=== PATIENT | female | born 1990 | race African-American/Black ===

== ENCOUNTER 2016-11-10 15:37 | Inpatient (IN) | payer OTHER ==
--- NOTE | ~2016-11-10 | EE ---
Unit #: [id number] #: [id number] Patient: MARGARETH CLARKE [id number] [address] [id number] I MR#: [id number] NAME: MARGARETH CLARKE : 1990 SEX: F STUDY DATE/TIME: UNIT: C3A PCU ROOM: [address] [place] [address] DESCRIPTION: EEG Attending Physician: Fredrick Rocha M.D. NEURODIAGNOSTICS REPORT EXAM EEG CHIEF COMPLAINT Seizures. DESCRIPTION EEG was obtained in the awake and asleep states using the 10-20 International Montage System with photic stimulation and hyperventilation. EEG showed well organized 10 Hz range background activity from posterior regions which was symmetric between the hemispheres. There were no epileptiform discharges present and there were no focal signs. Response to photic stimulation and hyperventilation was minimal. Normal stage 2 sleep was captured during the recording. IMPRESSION Normal EEG in awake and asleep states. Dictated by... Mandeep Byrnes/yong TD: 11/12/2016 07:22 JOB #: [id number] NEURODIAGNOSTICS REPORT Page 1 of 1 X Kavon Rojas MD NEURODIAGNOSTICS REPORT
--- NOTE | ~2016-11-10 | EKG ---
PATIENT: BARRY CAMPUZANO UNIT #: [id number] Ventricular Rate: 60 BPM Atrial Rate: 60 BPM P-R Interval: 172 ms QRS Duration: 72 ms Q-T Interval: 400 ms QTC Calculation(Bezet): 400 ms P [place]: 55 degrees Calculated R [place]: 80 degrees Calculated T [place]: 51 degrees Diagnosis Line: Normal sinus rhythm Diagnosis Line: T wave abnormality, consider anterior ischemia Diagnosis Line: Abnormal ECG Diagnosis Line: Diagnosis Line: Confirmed by SUKUMAR JACKSON MD ([id number]) on 11/13/2016 Diagnosis Line: 9:41:34 AM INTERPRETING MD: MANUEL HUGHES
--- NOTE | ~2016-11-10 | HP ---
Unit #: [id number] #: [id number] Patient: BARRY CLARKE [id number] [facility]. [place], [place] [address] [id number] MR#: [id number] NAME: BARRY CAMPUZANO ROOM: Age: 26 Sex: F Admission Date: 11/10/2016 : 1990 Attending Physician: Akin Vicente M.D. HISTORY AND PHYSICAL CHIEF COMPLAINT Seizure. HISTORY OF PRESENT ILLNESS The patient is a 26-year-old female with a past medical history of seizure disorder who presented to the emergency department for evaluation of the above. The history is obtained from chart review and discussion with ER staff due to the patient currently being postictal and not answering any questions. The patient apparently had a seizure on the evening prior to admission. Today, she had another seizure. She is reportedly on 1000 mg of Keppra daily. She took half her usual dose today. She presented to the emergency department for further evaluation. In the emergency department, a CT of the head was done and showed nothing acute. Laboratory was essentially normal. She was going to be discharged home but then appeared to be confused and postictal. There was no witnessed seizure activity. She was given one gram of Keppra. She is being admitted to [facility] for evaluation and further treatment. PAST MEDICAL HISTORY Seizure disorder, maintained on Keppra. I was unable to get any additional details due to the patient currently being postictal. PAST SURGICAL HISTORY None. SOCIAL HISTORY The patient smokes a half pack of cigarettes daily. FAMILY HISTORY Unobtainable. REVIEW OF SYSTEMS A complete review of systems is unobtainable due to the patient currently being confused. PHYSICAL EXAMINATION VITAL SIGNS: Temperature is 98.3, pulse 72, respirations 22, blood pressure 147/92 and most recently 119/59, and oxygen saturation is 100% on room air. GENERAL: Patient is an female who is lethargic but opens Unit #: [id number] #: [id number] Patient: BARRY CLARKE eyes to physical stimuli. HEENT: Head is atraumatic. Mucous membranes are moist. NECK: Supple. Trachea is midline. CARDIOVASCULAR: Regular rate and rhythm. LUNGS: Clear to auscultation bilaterally with no increased work of breathing. ABDOMEN: Soft and nontender with bowel sounds present in all four quadrants. EXTREMITIES: Nontender with no pedal edema. NEUROLOGIC: Patient is lethargic. She opens eyes to physical stimuli. She is moving all extremities. PSYCHIATRIC: Unable to assess. SKIN: Skin of examined areas is warm and dry. DIAGNOSTIC STUDIES LABORATORY: Blood alcohol level is less than 5. Urine test is negative. Complete blood count is normal. Urine toxicology screen is positive for marijuana. Comprehensive metabolic panel notable for bicarb of 17. Anion gap is 12. IMAGING: Chest x-ray shows nothing acute. CT of the head shows nothing acute. CARDIOLOGY: EKG showed normal sinus rhythm with a rate of 60 beats per minute. There is T wave inversion in leads V2-V4. ASSESSMENT The patient is a 26-year-old female with: 1. Multiple seizures. The patient was given one gram of Keppra in the emergency department. 2. History of seizures, on 1000 mg of Keppra daily, although she recently took half of her normal dose. 3. Tobacco abuse. PLAN 1. Admit for observation to intermediate level. 2. N.p.o. until awake and passes bedside swallow. 3. Normal saline at 125 mL/hour. 4. Check magnesium level. 5. Bedrest. 6. Seizure precautions. 7. Neuro checks. 8. Keppra 1000 mg IV q.[address] Velazquez regarding multiple seizures. 10. Cardiac enzymes. 11. Repeat EKG in a.m. 12. Repeat labs in the morning. 13. SCDs for DVT prophylaxis. 14. Additional workup and consultants based on above. 1. Dictated by Priscilla Ceballos M.D. AW/dara TD: 11/10/2016 19:00 JOB #: [id number] Unit #: [id number] #: [id number] Patient: BARRY CLARKE HISTORY AND PHYSICAL Page 1 of 1 X Priscilla Ceballos MD HISTORY AND PHYSICAL
--- NOTE | ~2016-11-10 | CR72 ---
[facility] A Service of [facility] RADIOLOGY TEXT RESULTS PATIENT: MARGARETH CLARKE LOCATION: [facility] 303- : [birth year] UNIT #: [id number] AGE: [address]: Fredrick Rocha MD SEX: F ORDER DR: [id number] [facility] [address] [facility]. [place], [place] [address] [id number] I MR#: [id number] #: [id number] NAME: BARRY CLARKE : 1990 SEX: F STUDY DATE/TIME: 11/10/2016 16:28 UNIT: [address] ROOM: [facility] STUDY DESCRIPTION: CR Chest Single View Portable Attending Physician: Priscilla Ceballos M.D. Ordering Physician: Akin Vicente M.D. MEDICAL IMAGING REPORT This report is preliminary unless electronic signature is present EXAM Portable chest INDICATIONS Chest congestion today. PROCEDURE Frontal view of the chest COMPARISON None FINDINGS Heart size within normal limits. No dense consolidation, effusion or visible pneumothorax. IMPRESSION No acute findings. Dictated by... Tavo Chavez M.D. THIS IS AN ELECTRONICALLY VERIFIED REPORT Tavo Chavez M.D. at 11/14/2016 7:05 AM Carlos TD: 11/11/2016 06:33 JOB #: [id number] MEDICAL IMAGING REPORT Page 1 of 1 COPY
--- NOTE | ~2016-11-10 | CO ---
Unit #: [id number] #: [id number] Patient: MARGARETH DODSON [id number] [address] [place], [place] [address] [id number] I MR#: [id number] NAME: MARGARETH DODSON ROOM: 303 Age: 26 Sex: F Admission Date: 11/10/2016 : 1990 Attending Physician: Fredrick Rocha M.D. Consultation Date: 11/11/2016 CONSULTATION REPORT REASON FOR CONSULTATION Elevated troponin. HISTORY OF PRESENT ILLNESS This is a 26-year-old female who was diagnosed with seizures last year, has been on Keppra, who came in to the emergency room on this admission with recurrent seizures, breakthrough seizures. According to the patient, she says she had a seizure the evening prior to admission. She said a lot of times she has no aura, just kind of comes on suddenly. She said she usually falls with the seizures. She does not think she sustained any significant injury. She just felt sore. She had another seizure on day of admission. She reportedly is on 1,000 mg of Keppra daily. She took half of her usual dose on day of admission. Patient denies any chest pain, pain in her neck, bilateral jaws, shoulders, arms or elbows. She denies any palpitations. She does not have any aura before her seizures, as mentioned. She denied any dizziness. She is usually postictal. She did have an episode of slight lightheadedness and dizziness when she was at [facility] the day before admission but said it resolved. The patient has been admitted for further evaluation and management. Her EKG shows some normal sinus rhythm. She does have some T wave inversion in anterior leads with some, looks like, anterior Q waves in V1 and possibly V2, poor R wave progression, and her troponin increased from 0.05 to 0.03 and 0.14. Cardiology consulted to assist with evaluation and management. PAST MEDICAL HISTORY 1. Diagnosed with seizure disorder last year. 2. Nicotine abuse. 3. Marijuana use. 4. No cardiac cath or stress test in the past. PAST SURGICAL HISTORY None. HOME MEDICATIONS Keppra 1,000 mg p.o. daily. ALLERGIES No known drug allergies. SOCIAL HISTORY The patient lives with her brother and 2 children. She is currently unemployed. She says she is staying at home with her children. She smokes less than half a pack a day but has been smoking since she was a teenager. Unit #: [id number] #: [id number] Patient: MARGARETH DODSON No alcohol but does smoke marijuana occasionally. FAMILY HISTORY Her mother complains of her heart fluttering but no documented coronary artery disease. Her father and siblings are in generally good health. REVIEW OF SYSTEMS See details in the HPI. PHYSICAL EXAM GENERAL: On exam, Ms. Dodson is a 26-year-old female in no acute respiratory distress. She is awake, alert, oriented. VITAL SIGNS: Currently blood pressure is 109/50, heart rate 60, respirations 18, temperature 98.5, O2 sats 100% on room air. NECK: Trachea midline. No thyromegaly or lymphadenopathy. Normal carotid upstrokes. No jugular venous distention. HEART: S1, S2. Regular rate, rhythm. No clicks, murmurs or rubs. LUNGS: Bilaterally clear throughout. No wheezes, rales or rhonchi. ABDOMEN: Soft, nontender. Positive bowel sounds present. EXTREMITIES: Pedal pulses are palpable. No pedal edema. DIAGNOSTIC STUDIES LABORATORY DIAGNOSTIC DATA: Glucose is 95, BUN 10, creatinine 1, eGFR 90.1, sodium 137, potassium 3.6, chloride 106, CO2 26, calcium 9, magnesium 2.1, total protein 7, albumin 4, bili total 1.1, AST 18, ALT 15, alkaline phosphatase 43. Alcohol level is less than 5. WBC 7.4, hemoglobin 13.8, hematocrit 41.2, platelets 192. Urine tox screen is positive for marijuana. Cardiac enzymes - CK-MB is less than 1, troponin less than 0.05. Repeat cardiac enzymes - CK total is 205, MB is 2.1, percentage of MB is 1, and troponin is less than 0.03. Repeat cardiac enzymes - CK total is 221, MB is 2.9, percentage of MB 1.3 and troponin 0.14. Latest cardiac enzymes - CK total is 219, MB is 2.3, percentage of MB 1.1, troponin less than 0.05. CARDIOVASCULAR: EKG shows normal sinus rhythm with ventricular rate 60 beats per minute, left atrial abnormality, Q wave in V1 and possibly V2, poor R wave progression, T wave inversion in anterior leads. IMPRESSION 1. Seizure disorder - Breakthrough seizures. Seizure activity. 2. Abnormal EKG showing some possibly ischemic changes and mildly elevated troponin. 3. Active nicotine abuse. 4. Marijuana use. PLAN 1. Cardiology consulted to assist with evaluation and management of the nonspecific ST-T wave abnormalities in inferior leads, along with the mildly elevated troponin. Troponin did trend down from 0.14 to 0.07. Troponin at 0.14 is not indicative of acute coronary syndrome; however, with the abnormalities on her EKG, will continue to monitor. Will obtain a two-D echo to evaluate the LV function and valves to make sure she does not have any cardiomyopathy. Also will plan for a tilt table test as an outpatient to diagnose if seizures are not established. 2. On exam, there are no signs or symptoms reported by the patient of unstable angina or acute congestive heart failure. 3. Encourage patient completely quit smoking nicotine and also quit Unit #: [id number] #: [id number] Patient: MARGARETH DODSON marijuana use. 4. Neurology has been consulted. Janet, with Dr. Velazquez, interviewed the patient, and the patient does admit to being noncompliant at times with her Keppra. Plans are to have an EEG to evaluate for seizures and adjusting her dose of Keppra. 5. Right now, will hold off on any ischemic heart disease workup and may possibly be able to do that later as an outpatient. 6. Further recommendations pending per Dr. Powell. Dictated by... Iris BaPGurdeepRNancy for Mandeep Tesfaye/ross TD: 11/12/2016 08:28 JOB #: [id number] CONSULTATION REPORT Page 1 of 1 X Dahiana Noe APRN CONSULTATION REPORT
--- NOTE | ~2016-11-10 | EKG ---
PATIENT: BARRY CLARKE UNIT #: [id number] Ventricular Rate: 46 BPM Atrial Rate: 46 BPM P-R Interval: 172 ms QRS Duration: 82 ms Q-T Interval: 440 ms QTC Calculation(Bezet): 385 ms P [place]: 58 degrees Calculated R [place]: 73 degrees Calculated T [place]: 63 degrees Diagnosis Line: Marked sinus bradycardia Diagnosis Line: Nonspecific T wave abnormality Diagnosis Line: Abnormal ECG Diagnosis Line: Diagnosis Line: Confirmed by DANIELA PAZ MD ([id number]) on Diagnosis Line: 11/11/2016 11:29:03 PM INTERPRETING MD: TONY
--- NOTE | ~2016-11-10 | DS ---
Unit #: [id number] #: [id number] Patient: MARGARETH CLARKE [id number] [address] [address] [id number] I MR#: [id number] NAME: MARGARETH CLARKE ROOM: 303 Age: 26 Sex: F Admission Date: 11/10/2016 : 1990 Discharge Date: 11/11/2016 Attending Physician: Fredrick Rocha M.D. DISCHARGE SUMMARY Please note the patient left AMA. HISTORY OF PRESENT ILLNESS/HOSPITAL COURSE Please see H and P for complete details. Secondary to elevated troponins, the patient had a cardiac consultation. Dr. Powell saw and evaluate the patient, was scheduled for a 2-D echocardiogram as well as tilt study to be scheduled as an outpatient. Neurology Services were trying to obtain previous records as well as were set to perform an EEG and/or MRI. The patient elected to leave against medical advice. Therefore, her prescriptions at the time of discharge are unknown. FINAL DISCHARGE DIAGNOSES 1. Breakthrough seizure. 2. Seizure disorder. 3. Likely a longstanding history of noncompliance. 4. Tobacco abuse. 5. Non-ST elevation myocardial infarction/elevated troponins. Dictated by... Mandeep Soria/obi TD: 11/12/2016 11:08 JOB #: [id number] DISCHARGE SUMMARY Page 1 of 1 X Fredrick Rocha MD X DISCHARGE SUMMARY
--- NOTE | ~2016-11-10 | CO ---
Unit #: [id number] #: [id number] Patient: MARGARETH CLARKE [id number] [facility] [address] [facility]. [place], [place] [address] [id number] I MR#: [id number] NAME: MARGARETH CLARKE ROOM: 303 Age: 26 Sex: F Admission Date: 11/10/2016 : 1990 Attending Physician: Fredrick Rocha M.D. Consultation Date: 11/11/2016 CONSULTATION REPORT PRIMARY CARE PHYSICIAN Not listed. REASON FOR CONSULT Seizures. PATIENT IDENTIFICATION This is a 26-year-old right-handed, female, evaluated in room 303 at [facility]. SOURCE OF INFORMATION Obtained from the patient as well as medical record. HISTORY OF PRESENT ILLNESS This is a 26-year-old right-handed, female with a past medical history of seizure disorder, who presents to [facility] with multiple seizure events x2. The patient reports that she had two seizures yesterday, witnessed by family. She states one was at home, where she had loss of consciousness, fell. Her brother witnessed the event. She had generalized shaking, was confused following the event. She then later rode with a friend to [place] and had another witnessed event, and she states she then woke up in the ER and does not know exactly what happened. She states that she does have a tongue bite, which is evident on the right side of her tongue. She denies incontinence of the bowel or bladder. She does admit that she has been taking a reduced dose of her medication, she is on Keppra, because she states that it makes her sleepy and that she has to take care of her children during the day and cannot take medication that makes her sleepy all day. She was initially seen at [facility] she says when we did request those records. She was seen there last year and evaluated for seizure disorder. She denies any recent fever or chills, focal weakness or paresthesia or other neurologic symptoms, any double vision, blurred vision or loss of vision, headache, neck pain, head injury, or any recent febrile illness. She does complain that she has had a headache after the seizure event yesterday, but that it is now resolved. Her exam is nonfocal. Her head CT was negative as well. We did order an EEG to be done pending records and given her current events. However, I believe it was done, but she is now left against medical advice. Thus, her full workup and evaluation could not be completed. We were able to get records from [facility] from an admission on 02/07/2016. She was seen for seizure activity and had her first seizure several weeks prior to that and was seen in the ED and started on Keppra and then discharged home to follow up with Neurology as an outpatient. She had not followed up with Neurology as of yet, but had reported compliance at that time and Unit #: [id number] #: [id number] Patient: MARGARETH CLARKE apparently had two seizures, which prompted her to return to the ED. As on that visit, she was admitted and did have a CT of the head without contrast that was unremarkable. She also had an MRI of the brain done without and with contrast that was normal for age. She had an EEG done that was normal awake and drowsy EEG. She was discharged the next day on 02/08/2016 on Keppra 1000 mg b.i.d. and had a followup appointment scheduled with Dr. Gena Rudolph with [facility] epileptologist. However, she states that she has had trouble following up as she is supposed to. I am uncertain whether she actually has seen Dr. Gena Rudolph since her discharge in 02/2016. When I saw her earlier today given that she states noncompliant secondary to drowsiness, we adjusted her medications to Keppra XR 2000 mg in the evening. However, she left against medical advice and did not take that prescription with her. PAST MEDICAL HISTORY 1. Seizure disorder. Please see above for full details and records from [facility] from 02/07/2016 to 02/08/2016. 2. Tobacco use. 3. Herpes simplex. 4. Abnormal Pap smear. 5. She denies any other neurologic or other past medical history. FAMILY HISTORY She states that her brother has a diagnosis of seizures in his 20s as well. PAST SURGICAL HISTORY None. ALLERGIES No known drug allergies. HOME MEDICATIONS She states that she is only taking Keppra and they report that she has not been fully compliant, only taking it in the evening. Otherwise, medications have not been reconciled. REVIEW OF SYSTEMS 14-point review of systems was attempted. Pertinent positives are as discussed above, otherwise negative. PHYSICAL EXAMINATION VITAL SIGNS: Temperature 99.1, pulse 91, respirations 17, blood pressure 129/68, oxygen saturation 100%, height 5 feet 0 inches, weight 111 pounds, BMI 23. NEUROLOGIC: She is awake, alert, and oriented to person, place, and time as well as events. No right or left confusion. No finger agnosia. No aphasia, dysarthria, or apraxia. Cranial nerve exam demonstrates full hemphill of vision. Eyes are conjugate without ptosis or nystagmus. Extraocular movements are intact. Sensation of the face and scalp is intact. Strength of muscles of facial expression is intact. Hearing is intact to finger rub and conversation. Tongue is midline. Uvula is midline. Palate elevation is normal. Head turning and shoulder shrug are unremarkable. Neck is supple. Motor exam demonstrates normal bulk and tone. Strength is equal, 5/5 in all extremities. Sensory exam intact. No extinction appreciated. Gait and Romberg are deferred. Reflexes, 1/4. Toes are equivocal. Coordination unremarkable. DIAGNOSTIC STUDIES Unit #: [id number] #: [id number] Patient: MARGARETH CLARKE IMAGING STUDIES: CT of the head without contrast on 11/10/2016 normal. EEG pending. LABORATORY RESULTS: TSH 0.74. Troponin 0.07. CMP, negative. CBC, negative. Initial troponin 0.14. Blood alcohol level less than 5. Urine tox screen positive for marijuana. Initial white blood cell count 6.3. IMPRESSION 1. Breakthrough generalized seizures x2 secondary likely to noncompliance with medications. 2. Elevated troponin. Cardiology following. 3. Newly diagnosed seizure disorder in 2016. Records have been reviewed. Please see above for records from [facility]. 4. Tobacco abuse. 5. Marijuana abuse. PLAN I saw the patient this morning. Discussed with Dr. Rojas. We adjusted the patient's Keppra to Keppra XR 2000 mg p.o. q.h.s. given her intolerance to the side effect of drowsiness during the day to try to improve her compliance. However, she did not take that prescription as she left against medical advice. Thus, we recommend that she return to the ED for any other seizure activity, especially any recurrent or prolonged events. I did educate her on driving prior to leaving AMA. She needs to follow up with her outpatient neurologist and we encouraged compliance. Unfortunately, we are unable to make any further recommendations and to complete a full evaluation as the patient left against medical advice. Dictated by... Salvatore Schwartz/olu TD: 11/12/2016 16:30 JOB #: [id number] CONSULTATION REPORT Page 1 of 1 X Janet Long APRN X CONSULTATION REPORT
--- NOTE | ~2016-11-10 | CT71 ---
[facility] A Service of [facility] RADIOLOGY TEXT RESULTS PATIENT: BARRY CLARKE LOCATION: [facility] : [birth year] UNIT #: [id number] AGE: [address]: Fredrick Rocha MD SEX: F ORDER DR: [id number] [facility] [address] [facility] [place], [place] [address] [id number] I MR#: [id number] Acc #: [id number] NAME: BARRY CLARKE : 1990 SEX: F STUDY DATE/TIME: 11/10/2016 15:40 [facility] STUDY DESCRIPTION: CT Head Wo Contrast Attending Physician: Priscilla Ceballos M.D. Ordering Physician: Akin Vicente M.D. MEDICAL IMAGING REPORT This report is preliminary unless electronic signature is present EXAM Head CT without contrast 11/10/2016 HISTORY 2 seizures today with diffuse headache. TECHNIQUE This CT examination was performed with one or more of the following radiation dose reduction techniques: automatic exposure control, adjustment of mA and/or kV according to patient size, and iterative reconstruction. FINDINGS Axial noncontrast images were obtained from the skull base to the vertex. Ventricular size and configuration are normal. There is no evidence of acute infarct or hemorrhage. There are no extra-axial fluid collections. No mass lesion or mass effect is seen. There are no skull fractures. IMPRESSION Normal noncontrast head CT. Dictated by... Galindo Masterson M.D. THIS IS AN ELECTRONICALLY VERIFIED REPORT Galindo Masterson M.D. at 11/11/2016 10:45 AM TAYA/kelley TD: 11/11/2016 06:08 JOB #: [id number] [facility] A Service of [facility] RADIOLOGY TEXT RESULTS PATIENT: BARRY CLARKE LOCATION: [facility] : [birth year] UNIT #: [id number] AGE: [address]: Fredrick Rocha MD SEX: F ORDER DR: MEDICAL IMAGING REPORT Page 1 of 1 COPY
[2016-11-10 14:21] LABS: ALBUMIN SERUM 4.4 g/dL (3.5-5.0); BILIRUBIN, DIRECT 0.1 mg/dL (0.0-0.2); BILIRUBIN,INDIRECT 0.4 mg/dL (0.0-0.9); BILIRUBIN,TOTAL 0.5 mg/dL (0.2-2.0); BUN/CREATININE RATIO 12.22; CREATININE SERUM 0.9 mg/dL (0.6-1.4); GLOM FILT RATE Estimated 88.3 mL/min (>60); POTASSIUM 3.6 mmol/L (3.5-5.1); PROTEIN TOTAL SERUM 7.5 g/dL (6.0-8.3)
[2016-11-10 15:49] LABS: AMPHETAMINE NEG (NEG); BARBITURATES NEG (NEG); BENZODIAZEPINES NEG (NEG); COCAINE NEG (NEG); MARIJUANA POS (NEG); OPIATES NEG (NEG); TRICYCLIC ANTIDEPRESSANTS NEG (NEG); U METHADONE NEG (NEG)
[2016-11-10 16:19] LABS: BASOPHIL% 0.4 % (0-2.5); EOSINOPHIL% 0.4 % (0.0-7.0); HEMOGLOBIN 14.7 gm/dL (12.0-16.0); LYMPHOCYTE# 1.7 X10e3 (1.0-3.5); LYMPHOCYTE% 27.2 % (17.0-45.0); MEAN CELL VOLUME 93.8 FL (83-96); MEAN CORPUSCULAR HEMOGLOBIN 31.4 PG (28-34); MEAN CORPUSCULAR HGB CONC 33.5 g/dL (30-36); MEAN PLATELET VOLUME 9.6 FL (6.5-11.5); MONOCYTE# 0.3 X10e3 (0-1.0); MONOCYTE% 5.4 % (3.0-12.0); NEUTROPHIL# 4.2 X10e3 (1.5-7.1); NEUTROPHIL% 66.6 % (40-75); PLATELET COUNT 193 X10e3 (140-420); RED BLOOD COUNT 4.69 X10e (3.90-5.30); RED CELL DISTRIBUTION WIDTH 13.3 % (11.0-15.5); WHITE BLOOD COUNT 6.3 X10e3 (4.0-10.5)
[2016-11-10 16:22] LABS: DIFF IND NO
[2016-11-10 18:39] LABS: POC - CKMB <1.0 ng/mL (0.0-7.9); POC - TROPONIN <0.05 ng/mL (<=0.05)
[2016-11-10 18:51] LABS: MAGNESIUM 2.1 mg/dL (1.6-3.0)
[2016-11-10 19:10] LABS: MB 2.1 ng/ml
[2016-11-10] MEDS ORDERED: KEPPRA1000 MG PO (20:19)
[2016-11-11 01:15] LABS: %MB 1.3 % (0.0-4.0); MB 2.9 ng/ml
[2016-11-11 06:27] LABS: BASOPHIL# 0.1 X10e3 (0-0.3); BASOPHIL% 0.8 % (0-2.5); EOSINOPHIL# 0.1 X10e3 (0-0.7); EOSINOPHIL% 0.7 % (0.0-7.0); HEMATOCRIT 41.2 % (35.0-45.0); HEMOGLOBIN 13.8 gm/dL (12.0-16.0); LYMPHOCYTE# 1.8 X10e3 (1.0-3.5); LYMPHOCYTE% 24.4 % (17.0-45.0); MEAN CORPUSCULAR HEMOGLOBIN 31.2 PG (28-34); MEAN CORPUSCULAR HGB CONC 33.5 g/dL (30-36); MEAN PLATELET VOLUME 8.9 FL (6.5-11.5); MONOCYTE# 0.4 X10e3 (0-1.0); MONOCYTE% 4.9 % (3.0-12.0); NEUTROPHIL# 5.1 X10e3 (1.5-7.1); NEUTROPHIL% 69.2 % (40-75); PLATELET COUNT 192 X10e3 (140-420); RED BLOOD COUNT 4.43 X10e (3.90-5.30); RED CELL DISTRIBUTION WIDTH 13.2 % (11.0-15.5); WHITE BLOOD COUNT 7.4 X10e3 (4.0-10.5)
[2016-11-11 06:28] LABS: DIFF IND NO
[2016-11-11 06:59] LABS: BILIRUBIN,TOTAL 1.1 mg/dL (0.2-2.0); GLOM FILT RATE Estimated 90.1 mL/min (>60); MAGNESIUM 1.8 mg/dL (1.6-3.0); POTASSIUM 3.6 mmol/L (3.5-5.1)
[2016-11-11 07:13] LABS: %MB 1.1 % (0.0-4.0); MB 2.3 ng/ml
== END 2016-11-11 15:40 | disposition left against medical advice (07) | DRG 101 ==
LOC: CED 15:37 → C3A PCU 17:45
PROVIDERS: Emergency Medicine; Family Medicine
PROC: 4A10X4Z Monitoring of Central Nervous Electrical Activity, External Approach (ICD-10-PCS; principal; 2016-11-11)
DX: G40.909 Epilepsy, unspecified, not intractable, without status epilepticus (principal); F17.210 Nicotine dependence, cigarettes, uncomplicated; Z91.19 Patient's noncompliance with other medical treatment and regimen
CPT/HCPCS: 36415; 51701; 70450; 71010; 80048; 80053; 80076; 80307; 82550; 82553; 82947; 83690; 83735; 84443; 84484; 84703; 85025; 93005; 95816; 96365; 96366; 96375; 99285; G0480; J1953; J2405